=== PATIENT | female | born 1955 | race American Indian/Alaskan Native ===

== ENCOUNTER 2017-10-16 12:18 | Emergency (ER) | payer MEDICAID, MEDICARE ==
[2017-10-16 12:39] VITALS: BMI 32.8
[2017-10-16 12:44] VITALS: RESP 20
--- NOTE | 2017-10-16 13:11 | C.PDOC ---
History Of Present Illness 62 y/o female with history of DM and Asthma presents to ED sent by Dr Delgado for doppler test. Patient has complaints of right leg pain and swelling in calf for 3 weeks and denies recent injury, weakness, numbness or any other complaints at this time. Time Seen by Provider: 10/16/17 12:37 Chief Complaint (Nursing): Lower Extremity Problem/Injury History Per: Patient History/Exam Limitations: no limitations Onset/Duration Of Symptoms: Days Current Symptoms Are (Timing): Still Present Severity: Mild Recent travel outside of the [place]: No Past Medical History Reviewed: Historical Data, Nursing Documentation, Vital Signs Vital Signs: Last Vital Signs Temp 98.1 F 10/16/17 16:20 Pulse 65 10/16/17 16:20 Resp 20 10/16/17 16:20 BP 122/79 10/16/17 16:20 Pulse Ox 93 L 10/16/17 17:00 - Medical History PMH: Asthma, COPD, Hypercholesterolemia, Hypothyroidism Surgical History: No Surg Hx - [facility] Procedures CLOSED ENDOSCOPIC BIOPSY OF LARGE INTESTINE (04/10/04) COMPLETE THYROIDECTOMY (03/20/00) DESTROY FALLOP TUBE LES (01/24/05) DESTRUC UTER SUPPORT NEC (08/04/97) EXCIS PERIANAL SKIN TAG (08/04/97) OTH LYSIS-PERITONEAL ADHES (01/24/05) OTH UNILAT SALPINGO-OOPHORECTOMY (01/24/05) OTH VAGINAL HYSTERECTOMY (08/04/97) TOTAL UNILAT SALPINGECT (08/04/97) VAGINAL BIOPSY (02/28/01) VAGINOSCOPY (02/28/01) Family History: States: No Known Family Hx - Social History Hx Tobacco Use: No Hx Alcohol Use: No Hx Substance Use: No - Immunization History Hx Tetanus Toxoid Vaccination: No Hx Influenza Vaccination: No Hx Pneumococcal Vaccination: No Review Of Systems Constitutional: Negative for: Fever, Chills Musculoskeletal: Positive for: Leg Pain Skin: Negative for: Rash Neurological: Negative for: Weakness, Numbness Physical Exam - Physical Exam Appears: Non-toxic, No Acute Distress Skin: Warm, Dry, No Rash Head: Atraumatic, Normacephalic Oral Mucosa: Moist Neck: Normal ROM, Supple Cardiovascular: Rhythm Regular Respiratory: Normal Breath Sounds, No Rales, No Rhonchi, No Wheezing Gastrointestinal/Abdominal: Soft, No Tenderness, No Guarding, No Rebound Extremity: Calf Tenderness (Mild right), No Deformity, No Swelling, Other ( right leg Pain with ambulation ) Extremity: Bilateral: Normal ROM Pulses: Left Femoral: Normal, Right Femoral: Normal Neurological/Psych: Oriented x3, Normal Motor, Normal Sensation ED Course And Treatment - Laboratory Results Result Diagrams: 10/16/17 13:50 10/16/17 13:50 Lab Interpretation: No Acute Changes O2 Sat by Pulse Oximetry: 93 (RA) Pulse Ox Interpretation: Normal Progress Note: Doppler LE: no DVT, possible ? fluid collection left calf. Treated with motrin 600 mg PO. On re-evaluation calf mild tenderness, (-) erythema, (+) pulses Reassessment Condition: Improved Medical Decision Making Medical Decision Making: Plan: Doppler, Blood work Disposition Counseled Patient/Family Regarding: Studies Performed, Diagnosis, Need For Followup, Rx Given - Disposition Referrals: Mckinley Delgado MD [Medical Doctor] - Disposition: HOME/ ROUTINE Disposition Time: 16:20 Condition: STABLE Additional Instructions: Return to ED if any increase symptoms Prescriptions: Naproxen [Naprosyn] 1 tab PO BID PRN #25 tab PRN Reason: Pain Instructions: Leg Pain (ED) Forms: [email or web address] (Maldivian) - POA Present On Arrival: None - Clinical Impression Clinical Impression: Muscle strain, Right calf pain - PA / PRACTICE CONSULTANT / Resident Statement MD/DO has reviewed & agrees with the documentation as recorded. - Scribe Statement The provider has reviewed the documentation as recorded by the Sonia Grant All medical record entries made by the Sonia were at my direction and personally dictated by me. I have reviewed the chart and agree that the record accurately reflects my personal performance of the history, physical exam, medical decision making, and the department course for this patient. I have also personally directed, reviewed, and agree with the discharge instructions and disposition.
--- NOTE | 2017-10-16 13:12 | C.PDOC ---
Time Seen by Provider: 10/16/17 12:37 Chief Complaint (Nursing): Lower Extremity Problem/Injury Past Medical History Vital Signs: Last Vital Signs Temp 97.7 F 10/16/17 12:36 Pulse 63 10/16/17 12:36 Resp 20 10/16/17 12:36 BP 123/74 10/16/17 12:36 Pulse Ox 93 L 10/16/17 12:36 - Medical History PMH: Asthma, COPD, Hypercholesterolemia, Hypothyroidism - [facility] Procedures CLOSED ENDOSCOPIC BIOPSY OF LARGE INTESTINE (04/10/04) COMPLETE THYROIDECTOMY (03/20/00) DESTROY FALLOP TUBE LES (01/24/05) DESTRUC UTER SUPPORT NEC (08/04/97) EXCIS PERIANAL SKIN TAG (08/04/97) OTH LYSIS-PERITONEAL ADHES (01/24/05) OTH UNILAT SALPINGO-OOPHORECTOMY (01/24/05) OTH VAGINAL HYSTERECTOMY (08/04/97) TOTAL UNILAT SALPINGECT (08/04/97) VAGINAL BIOPSY (02/28/01) VAGINOSCOPY (02/28/01) Family History: States: Unknown Family Hx - Social History Hx Tobacco Use: No Hx Alcohol Use: No Hx Substance Use: No - Immunization History Hx Tetanus Toxoid Vaccination: No Hx Influenza Vaccination: No Hx Pneumococcal Vaccination: No ED Course And Treatment O2 Sat by Pulse Oximetry: 93 Disposition - Disposition
[2017-10-16 13:55] LABS: BASO # 0.1 K/uL (0.0-0.2); BASO % 0.9 % (0.0-2.0); EOS # 0.6 K/uL (0.0-0.7); EOS % 5.4 % (0.0-4.0); HEMOGLOBIN 13.2 g/dL (11.0-16.0); LYMPH # 3.3 K/uL (1.0-4.3); LYMPH % 28.3 % (20.0-40.0); MEAN CELL VOLUME 86.5 fL (81.0-99.0); MEAN CORPUSCULAR HEMOGLOBIN 28.8 pg (27.0-31.0); MEAN CORPUSCULAR HGB CONC 33.3 g/dL (33.0-37.0); MEAN PLATELET VOLUME 9.3 fL (7.2-11.7); MONO # 0.7 K/uL (0.0-0.8); MONO % 5.7 % (0.0-10.0); NEUT % 59.7 % (50.0-75.0); RBC 4.58 Mil/uL (3.80-5.20); RED CELL DISTRIBUTION WIDTH 13.1 % (11.5-14.5); WHITE BLOOD COUNT 11.7 K/uL (4.8-10.8)
[2017-10-16 14:09] LABS: ALB/GLOB RATIO 1.1 (1.0-2.1); ALT/SGPT 25 U/L (9-52); AST/SGOT 27 U/L (14-36); BLOOD UREA NITROGEN 13 mg/dL (7-17); GFR AFRICAN-AMERICAN > 60; GFR NON-AFRICAN AMERICAN > 60
[2017-10-16 16:20] VITALS: BP 122/79; PULSE 65; TEMP 98.1
[2017-10-16 17:01] VITALS: O2SAT 93
--- NOTE | 2017-10-17 14:44 | VASCLAB ---
PROCEDURE: Lower Extremity Venous Duplex Exam. HISTORY: edema PRIORS: None. TECHNIQUE: Bilateral common femoral, femoral, popliteal and posterior tibial, peroneal and great saphenous veins were evaluated. Flow was assessed with color Doppler, compressibility, assessment of phasic flow and augmentation response. Report prepared by FERMIN Payan, RVT FINDINGS: RIGHT: 1. Common Femoral Vein: 1.1. Compressibility - Fully compressible: Thrombus - None : Flow - Phasic: Augmentation -Normal: Reflux - None. 2. Femoral Vein: 2.1. Compressibility - Fully compressible: Thrombus - None : Flow - Phasic: Augmentation -Normal: Reflux - None. 3. Popliteal Vein: 3.1. Compressibility - Fully compressible: Thrombus - None : Flow - Phasic: Augmentation -Normal: Reflux - None. 4. Posterior Tibial Vein: 4.1. Compressibility - Fully compressible: Thrombus - None: Flow - Phasic: Augmentation -Normal: Reflux - None. 5. Peroneal Vein: 5.1. Compressibility - Fully compressible: Thrombus - None: Flow - Phasic: Augmentation -Normal: Reflux - None. 6. Great Saphenous Vein: 6.1. Compressibility - Fully compressible: Thrombus - None: Flow - Phasic: Augmentation - Normal: Reflux - None. LEFT: 1. Common Femoral Vein: 1.1. Compressibility - Fully compressible: Thrombus - None: Flow - Phasic: Augmentation -Normal: Reflux - None. 2. Femoral Vein: 2.1. Compressibility - Fully compressible: Thrombus - None: Flow - Phasic: Augmentation -Normal: Reflux - None. 3. Popliteal Vein: 3.1. Compressibility - Fully compressible: Thrombus - None : Flow - Phasic: Augmentation -Normal: Reflux - None. 4. Posterior Tibial Vein: 4.1. Compressibility - Fully compressible: Thrombus - None: Flow - Phasic: Augmentation -Normal: Reflux - None. 5. Peroneal Vein: 5.1. Compressibility - Fully compressible: Thrombus - None: Flow - Phasic: Augmentation -Normal: Reflux - None. 6. Great Saphenous Vein: 6.1. Compressibility - Fully compressible: Thrombus - None: Flow - Phasic: Augmentation - Normal: Reflux - None. OTHER FINDINGS: Right: Anechoic non vascularlized longitudinal irregular shaped mass noted from right proximal to mid calf level. NOHEMY Garcia notified about the findings. IMPRESSION: Right: No evidence of deep or superficial vein thrombosis of the right lower extremity. Normal valve function noted of the right side. Left: No evidence of deep or superficial vein thrombosis of the left lower extremity. Normal valve function noted of the left side.
== END 2017-10-16 16:30 | disposition home or self-care (01) ==
LOC: C.ER 12:18
DX: S86.911A Strain of unspecified muscle(s) and tendon(s) at lower leg level, right leg, initial encounter (principal); X58.XXXA Exposure to other specified factors, initial encounter; M79.661 Pain in right lower leg

== ENCOUNTER 2018-12-18 09:00 | Day surgery (SDC) | payer MEDICAID ==
[2018-12-17 13:53] VITALS: BMI 30.9
[2018-12-18 09:33] VITALS: TEMP 98
[2018-12-18] MEDS ORDERED: Lactated Ringer's 500 ML IV ONE (12:29)
[2018-12-18] MEDS ORDERED: Propofol 10 mg/ml Inj (20 ML) ONE ×2 (12:30→12:36)
[2018-12-18] MEDS ORDERED: Midazolam 2 MG/2 ML VIAL ONE (12:31)
[2018-12-18 13:12] VITALS: O2SAT 99
[2018-12-18 13:30] VITALS: RESP 18
[2018-12-18 13:51] VITALS: BP 121/73; PULSE 62
== END 2018-12-18 13:49 | disposition home or self-care (01) ==
LOC: C.ENDO 09:00
PROVIDERS: ATTEND Internal Medicine Gastroenterology
DX: Z12.11 Encounter for screening for malignant neoplasm of colon (principal); K21.0 Gastro-esophageal reflux disease with esophagitis; K44.9 Diaphragmatic hernia without obstruction or gangrene; K29.50 Unspecified chronic gastritis without bleeding; K64.1 Second degree hemorrhoids
CPT/HCPCS: 43239; 45378; 82948; 88305; 88312; 88342; J2250; J2704; J7120